=== PATIENT | male | born 1985 | race Caucasian/White ===

== ENCOUNTER 2017-11-05 22:18 | Emergency (ER) | payer OTHER ==
[~2017-11-05] VITALS: Ht 170.2 cm; Wt 100.0 kg
[2017-11-05 22:31] VITALS: BP 119/76
== END 2017-11-06 00:10 | disposition home or self-care (01) ==
LOC: ER 22:22
DX: F10.229 Alcohol dependence with intoxication, unspecified (principal); Y90.9 Presence of alcohol in blood, level not specified
CPT/HCPCS: 99283